=== PATIENT | female | born 1980 | race Caucasian/White ===

== ENCOUNTER 2021-01-28 09:07 | Inpatient (IN) | payer OTHER ==
[~2021-01-28] VITALS: Ht 152.4 cm; Wt 149.2 kg
[~2021-01-28 09:07] MED LIST: BACTRIM DS TAB1 EACH PO; BACTROBAN NASAL1 G1 TOP; BENTYL 20MG TAB20 MG PO; FLEXERIL 10 MG10 MG PO; LODINE CAP 300300 MG PO; PROVERA10 MG PO; ZOFRAN ODT 4 MG4 MG PO; ZOFRAN4 MG PO
[2021-01-28 10:02] LABS: RED BLOOD COUNT 5.44 M/UL (4.00-5.10); WHITE BLOOD COUNT 6.5 K/UL (4.5-11.0)
[2021-01-28 10:27] LABS: BUN/CREATININE RATIO 15 (0-10)
[2021-01-28] MEDS ORDERED: MEGACE TAB 40 M40 MG PO (13:14)
[2021-01-28] MEDS ORDERED: GLUCOPHAGE 500500 MG PO (13:15)
[2021-01-28] MEDS ORDERED: FERROUS SULFAT325 MG PO (13:16)
[2021-01-28] MEDS ORDERED: MOTRIN IB200 MG PO (14:17)
[2021-01-28] MEDS ORDERED: VENTOLIN HFA 66.7 GM INH (14:19)
[2021-01-29 05:41] LABS: HEMOGLOBIN 11.2 gm/dl (12.3-15.3); RED BLOOD COUNT 4.97 M/UL (4.00-5.10); WHITE BLOOD COUNT 5.1 K/UL (4.5-11.0)
[2021-01-29 06:06] LABS: BUN/CREATININE RATIO 26 (0-10)
[2021-01-30 02:50] LABS: HEMOGLOBIN 11.9 gm/dl (12.3-15.3); RED BLOOD COUNT 5.15 M/UL (4.00-5.10)
[2021-01-30 03:05] LABS: BUN/CREATININE RATIO 32 (0-10)
[2021-01-30 03:09] LABS: WHITE BLOOD COUNT 6.5 K/UL (4.5-11.0)
[2021-01-30 12:06] LABS: BUN/CREATININE RATIO 31 (0-10)
[2021-01-31 04:31] LABS: HEMOGLOBIN 11.9 gm/dl (12.3-15.3); RED BLOOD COUNT 5.14 M/UL (4.00-5.10); WHITE BLOOD COUNT 9.5 K/UL (4.5-11.0)
[2021-01-31 04:42] LABS: BUN/CREATININE RATIO 35 (0-10)
[2021-02-01 06:21] LABS: HEMOGLOBIN 11.3 gm/dl (12.3-15.3); RED BLOOD COUNT 4.93 M/UL (4.00-5.10); WHITE BLOOD COUNT 9.8 K/UL (4.5-11.0)
[2021-02-01 06:50] LABS: BUN/CREATININE RATIO 31 (0-10)
[2021-02-02] MEDS ORDERED: LANTUS INS100 UTS/M1 SC (10:32)
[2021-02-02] MEDS ORDERED: DECADRON6 MG PO (10:32)
[2021-02-02] MEDS ORDERED: FORTAMET500 MG PO (10:32)
== END 2021-02-02 14:20 | disposition home or self-care (01) | DRG 177 ==
LOC: ER1 09:07 → MED SURG 4 12:05 → CDU 12:05 → MED SURG 4 15:19
PROVIDERS: Emergency Medicine; Physician Assistant; ADMIT Family Medicine
PROC: 3E0333Z Introduction of Anti-inflammatory into Peripheral Vein, Percutaneous Approach (ICD-10-PCS; principal; 2021-01-28)
PROC: XW033E5 Introduction of Remdesivir Anti-infective into Peripheral Vein, Percutaneous Approach, New Technology Group 5 (ICD-10-PCS; 2021-01-28)
PROC: XW13325 Transfusion of Convalescent Plasma (Nonautologous) into Peripheral Vein, Percutaneous Approach, New Technology Group 5 (ICD-10-PCS; 2021-01-28)
DX: U07.1 COVID-19 (principal); J96.01 Acute respiratory failure with hypoxia; J12.82 Pneumonia due to coronavirus disease 2019; E66.2 Morbid (severe) obesity with alveolar hypoventilation; I47.1 Supraventricular tachycardia; Z68.44 Body mass index [BMI] 60.0-69.9, adult; J98.11 Atelectasis; E87.6 Hypokalemia; D64.9 Anemia, unspecified; E11.65 Type 2 diabetes mellitus with hyperglycemia; Z90.49 Acquired absence of other specified parts of digestive tract; Z88.5 Allergy status to narcotic agent; Z88.0 Allergy status to penicillin; Z88.2 Allergy status to sulfonamides; Z79.4 Long term (current) use of insulin
CPT/HCPCS: 0240U; 36415; 36600; 71045; 80048; 80053; 81001; 82550; 82553; 82803; 82962; 83036; 83605; 83690; 83735; 83880; 84484; 84703; 85025; 85379; 85610; 85730; 86900; 86901; 86927; 87040; 87205; 93005; 94640; 94760; 99285; J0456; J1100; J1650; J2405; J7030; J7050; Q9967

== ENCOUNTER 2021-04-06 03:01 | Emergency (ER) | payer OTHER ==
[~2021-04-06 03:01] MED LIST changes: +DECADRON6 MG PO; +FERROUS SULFAT325 MG PO; +FORTAMET500 MG PO; +GLUCOPHAGE 500500 MG PO; +LANTUS INS100 UTS/M1 SC; +MEGACE TAB 40 M40 MG PO; +MOTRIN IB200 MG PO; +VENTOLIN HFA 66.7 GM INH
[2021-04-06] MEDS ORDERED: PERCOCET 5/325 T1 EA PO (06:50)
== END 2021-04-06 07:10 | disposition home or self-care (01) ==
LOC: ER1 03:01
DX: M54.5 Low back pain (principal); E11.9 Type 2 diabetes mellitus without complications
CPT/HCPCS: 72131; 99283

== ENCOUNTER → 2021-08-10 | Outpatient (CLI) | payer OTHER ==
[~2021-08-10] MED LIST changes: +PERCOCET 5/325 T1 EA PO
[2021-08-11 11:14] LABS: RHEUMATOID ARTHRITIS FACTOR <10.0 IU/mL (0.0-13.9)
== END ==
LOC: LAB 10:30
PROVIDERS: Nurse Practitioner Family
DX: D89.9 Disorder involving the immune mechanism, unspecified (principal); M79.10 Myalgia, unspecified site; R76.8 Other specified abnormal immunological findings in serum; M25.50 Pain in unspecified joint; M89.9 Disorder of bone, unspecified
CPT/HCPCS: 36415; 72202; 82550; 82728; 83520; 84439; 84443; 85652; 86140; 86200; 86431

== ENCOUNTER 2021-09-01 04:00 | Emergency (ER) | payer OTHER ==
[2021-09-01 05:20] LABS: HEMOGLOBIN 12.1 gm/dl (12.3-15.3); RED BLOOD COUNT 4.56 M/UL (4.00-5.10); WHITE BLOOD COUNT 16.3 K/UL (4.5-11.0)
[2021-09-01 05:57] LABS: BUN/CREATININE RATIO 28 (0-10)
[2021-09-01] MEDS ORDERED: HYDROCODON-ACE1 EAC4 PO (08:48)
[2021-09-01] MEDS ORDERED: ZOFRAN ODT 4 MG4 MG SL (08:55)
== END 2021-09-01 09:12 | disposition home or self-care (01) ==
LOC: ER1 04:00
PROVIDERS: Physician Assistant Medical
DX: N39.0 Urinary tract infection, site not specified (principal); E11.9 Type 2 diabetes mellitus without complications; N13.2 Hydronephrosis with renal and ureteral calculous obstruction; Z87.442 Personal history of urinary calculi; Z88.0 Allergy status to penicillin; Z88.2 Allergy status to sulfonamides; Z88.5 Allergy status to narcotic agent
CPT/HCPCS: 80053; 81001; 83690; 84703; 85025; 87040; 87086; 96374; 96375; 96376; 99284; J1885; J2185; J2270; J2405

== ENCOUNTER 2021-12-12 09:04 | Emergency (ER) | payer OTHER ==
[~2021-12-12 09:04] MED LIST changes: +HYDROCODON-ACE1 EAC4 PO; +ZOFRAN ODT 4 MG4 MG SL
[2021-12-12 09:49] LABS: RED BLOOD COUNT 4.55 M/UL (4.00-5.10); WHITE BLOOD COUNT 13.9 K/UL (4.5-11.0)
[2021-12-12 10:11] LABS: BUN/CREATININE RATIO 21 (0-10)
[2021-12-12] MEDS ORDERED: OMNICEF 300 MG300 MG PO (11:46)
== END 2021-12-12 12:55 | disposition home or self-care (01) ==
LOC: ER1 09:04
PROVIDERS: Physician Assistant
DX: N13.6 Pyonephrosis (principal); E10.9 Type 1 diabetes mellitus without complications
CPT/HCPCS: 80053; 81001; 84703; 85025; 87086; 96374; 96375; 99284; J0696; J1885; J2270; J2405